=== PATIENT | male | born 1995 | race Hispanic/Latino ===

== ENCOUNTER 2020-07-23 19:57 | Emergency (ER) | payer OTHER ==
[2020-07-23] MEDS ORDERED: SOLU-MEDROL 125MG VIAL ONE (20:36)
[2020-07-23] MEDS ORDERED: IPRATROPIUM/ALBUTEROL SULFATE 3 ML SOLUTION IH ONE (20:51)
== END 2020-07-23 22:18 | disposition home or self-care (01) ==
LOC: EDH 19:57
DX: J45.909 Unspecified asthma, uncomplicated (principal); Z88.0 Allergy status to penicillin; Z90.49 Acquired absence of other specified parts of digestive tract
CPT/HCPCS: 71045; 94640; 96372; 99283; J2930